=== PATIENT | female | born 1970 | race Caucasian/White ===

== ENCOUNTER 2019-05-21 19:01 | Emergency (ER) | payer BC, SELFPAY ==
[2019-05-21 19:02] VITALS: BP 130/88; PULSE 105; RESP 20; TEMP 37.1; O2SAT 97; BMI 54.3
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
--- NOTE | 2019-05-21 20:02 | EKG12_ITS ---
Test Reason : CP Blood Pressure : / mmHG Vent. Rate : 100 BPM Atrial Rate : 100 BPM P-R Int : 186 ms QRS Dur : 076 ms QT Int : 342 ms P-R-T Axes : 045 002 045 degrees QTc Int : 441 ms Normal sinus rhythm Normal ECG Confirmed by TRENT LANE, CARA ([id number]), editor farm journal ALEX LAZCANO ([id number]) on 05/24/2019 8:54:21 AM Referred By: MR Confirmed By:CARA NEWMAN MD
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
== END 2019-05-21 21:23 | disposition home or self-care (01) ==
PROVIDERS: Emergency Provider Emergency Medicine
DX: S29.012A Strain of muscle and tendon of back wall of thorax, initial encounter (principal); S20.219A Contusion of unspecified front wall of thorax, initial encounter; V89.2XXA Person injured in unspecified motor-vehicle accident, traffic, initial encounter; Y93.9 Activity, unspecified; Y92.9 Unspecified place or not applicable; Y99.9 Unspecified external cause status
CPT/HCPCS: 71046; 72072; 93005; 99282